=== PATIENT | female | born 1990 | race Two or more races ===

== ENCOUNTER 2020-04-20 10:01 | Emergency (ER) | payer OTHER ==
[~2020-04-20] VITALS: Ht 157.5 cm; Wt 74.8 kg
[2020-04-20 10:14] VITALS: BP 137/91
--- NOTE | 2020-04-20 10:15 | NUR ---
ED Nurse Note:pt. c/o left earache no dranage seen by ER
[2020-04-20] MEDS ORDERED: AUGMENTIN 875-1 EAC1 ORAL (10:22)
--- NOTE | 2020-04-20 10:22 | Emergency Room Report ---
History of Present Illness General Chief Complaint: Earache Source: Patient Present Illness HPI Patient states that yesterday she noted some discomfort in her left ear. She states this morning she had sharper pain in the left ear. She states right now it feels okay and that her symptoms in her ear come and go. She denies recent illness. She denies cough or congestion. She denies rhinorrhea. She denies fever or chills. She denies headache or neck pain. She has no other complaints. Allergies: Coded Allergies: No Known Allergies (Unverified , 04/20/20) COVID-19 Screening Contact w/high risk pt: No Recent Travel to affected area: No Experienced COVID-19 symptoms?: No COVID-19 Testing performed PERCUSSION INSTRUMENT TUNER: No Patient History Past Medical History: none Social History: Denies: smoking, alcohol use, drug use Now: No Reviewed Nursing Documentation: PMH: Agreed; PSxH: Agreed Nursing Documentation-PMH Past Medical History: No Stated History Review of Systems All Other Systems: negative except mentioned in HPI Physical Exam Vital Signs Date Time Temp Pulse Resp B/P (MAP) Pulse Ox O2 Delivery O2 Flow Rate FiO2 04/20/20 10:06 98.4 81 16 137/91 (106) 99 Room Air Sp02 EP Interpretation: reviewed, normal General Appearance: no apparent distress, alert, GCS 15, non-toxic Head: normocephalic, atraumatic Eyes: bilateral eye normal inspection, bilateral eye PERRL ENT: hearing grossly normal, no angioedema, normal voice, other - R. TM clear: WNL, L. TM bulging, cloudy fluid behind the TM w/ Erythema. Neck: normal inspection, full range of motion Respiratory: no respiratory distress, no retraction, no accessory muscle use, speaking full sentences Rectal: deferred Musculoskeletal: normal inspection, gait/station normal, non-tender Neurologic: alert, motor strength/tone normal, oriented x3, sensory intact, responsive, speech normal Psychiatric: judgement/insight normal, memory normal, mood/affect normal, no suicidal/homicidal ideation Skin: no rash, normal color Medical Decision Making Diagnostic Impression: Primary Impression: Otitis media ER Course This patient has a clinical presentation consistent with otitis media. There are no red flags on physical exam that would make me concerned for a malignant otitis media. Physical exam findings are consistent with a bacterial etiology based, although this may be viral. The patient was educated of this. It is also possible that this could be the only manifestation of COVID-19. The patient presents during the COVID-19 pandemic. I educated the patient the counter anti-inflammatories and I will prescribe a course of antibiotics. The patient was also informed of the possibility she could have COVID-19 and that she should quarantine unless she obtains a negative test. The patient is also instructed to obtain [id number] Auralgan and Sudafed. No emergency medical condition is identified at this time. The patient was given close return precautions and followup instructions. Last Vital Signs Date Time Temp Pulse Resp B/P (MAP) Pulse Ox O2 Delivery O2 Flow Rate FiO2 04/20/20 10:06 98.4 81 16 137/91 (106) 99 Room Air Status: improved Disposition: HOME, SELF-CARE Condition: Improved Patient Instructions: Otitis Media, Adult, [id number] Mitzi Yung DO Apr 20, 2020 10:22
--- NOTE | 2020-04-20 10:25 | NUR ---
ED Nurse Note: Pt cleared by health care Provider for discharge. DC instructions/prescription was given and explained to pt and verbalized understanding of teachings. All medical deviecs such as ID band removed. Pt is AAO x4, ambulatory and left with all personal belongings.
== END 2020-04-20 10:30 | disposition home or self-care (01) ==
LOC: EMR 10:20
DX: H66.92 Otitis media, unspecified, left ear (principal)
CPT/HCPCS: 99282